=== PATIENT | female | born 1955 | race Caucasian/White ===

== ENCOUNTER 2016-04-16 08:38 | Outpatient (CLI) | payer BC | END 2016-04-16 08:39 | LOC: NAVSJIPCSP 08:38 | PROVIDERS: ATTEND Internal Medicine | DX: E78.5 Hyperlipidemia, unspecified (principal) | CPT/HCPCS: 36415; 80061 ==

== ENCOUNTER 2016-08-11 08:44 | Outpatient (CLI) | payer BC ==
[2016-08-11 12:46] LABS: Cardiac Risk 3.7 (Less than 4.5)
== END 2016-08-11 08:45 ==
LOC: NAVSJIPCSP 08:44
PROVIDERS: ATTEND Internal Medicine
DX: E78.5 Hyperlipidemia, unspecified (principal)
CPT/HCPCS: 36415; 80061